=== PATIENT | female | born 1940 | race Caucasian/White ===

== ENCOUNTER 2017-04-28 14:43 | Emergency (ER) | payer BC, MEDICARE ==
--- NOTE | 2017-04-28 15:33 | EDM.PDOC ---
ED HPI GENERAL MEDICAL PROBLEM - General Chief Complaint: Abdominal Pain Stated Complaint: Abdominal pain Time Seen by Provider: 04/28/17 15:00 Source of Information: Reports: Patient, Half-Way Records, RN Notes Reviewed History Limitations: Reports: Other (severe dementia ) - History of Present Illness INITIAL COMMENTS - FREE TEXT/NARRATIVE: 76 year old female is brought to the ER today, accompanied by staff from [facility], for evlauation for abdominal pain and questionable syncope. The history is unclear as the patient is unable to provide history and there was a shift change. Current staff from [facility] is going off charting. Patient apparently became weak while on the toilet. The charting is not clear but there is a questionable syncopal episode while on the toilet. She has not had a BM x1 week. No nausea or vomiting. 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 The patient denies any symptoms at this time. She is anxious and says she would like to leave. When asked about her Honorio, she calms and is cooperative. Nurses aid that has accompanied the patient has no additional information. I was able to talk to another staff member from the home. Charting reports that patient "seemed to be passing out," was very weak, and having trouble standing. She's been c/o abdominal pain for the past few days. No vomiting or fever noted in the chart. She's been c/o rectal pain and was noted to have hemorrhoids on exam by nurse. She did have a small, loose bm today according to charting. - Related Data Allergies Allergy/AdvReac Type Severity Reaction Status Date / Time No Known Allergies Allergy Verified 10/14/13 10:48 CDT Home Meds: Home Meds Citalopram Hydrobromide [Celexa] 40 mg PO DAILY 04/28/17 [History] Cyanocobalamin/FA/Pyridoxine [Folbee] 1 each PO DAILY 04/28/17 [History] Donepezil [Aricept] 10 mg PO BEDTIME 04/28/17 [History] Ferrous Sulfate. 65 mg PO BID 04/28/17 [History] Hydrochlorothiazide 25 mg PO DAILY 04/28/17 [History] Hydrocortisone Acetate 25 mg RC TID #20 supp.rect 04/28/17 [Rx] Loperamide [Imodium] 2 mg PO DAILY PRN 04/28/17 [History] Memantine HCl [Namenda Xr] 28 mg PO DAILY 04/28/17 [History] Phenytoin Sodium Extended [Dilantin] 200 mg PO DAILY 04/28/17 [History] Phenytoin Sodium Extended [Dilantin] 300 mg PO BEDTIME 04/28/17 [History] Potassium Chloride 10 meq PO DAILY 04/28/17 [History] amLODIPine [Norvasc] 7.5 mg PO DAILY 04/28/17 [History] ED ROS GENERAL - Review of Systems Review Of Systems: See Below Constitutional: Reports: Weakness. Denies: Fever Respiratory: Reports: No Symptoms. Denies: Cough Cardiovascular: Reports: No Symptoms. Denies: Chest Pain GI/Abdominal: Reports: Abdominal Pain, Constipation, Diarrhea. Denies: Bloody Stool, Nausea, Vomiting : Reports: No Symptoms. Denies: Dysuria Neurological: Reports: Confusion ED EXAM, GI/ABD - Physical Exam Exam: See Below Exam Limited By: No Limitations General Appearance: Alert, WD/WN, No Apparent Distress, Anxious Respiratory/Chest: No Respiratory Distress, Lungs Clear, Normal Breath Sounds, No Accessory Muscle Use, Chest Non-Tender Cardiovascular: Normal Peripheral Pulses, Regular Rate, Rhythm, No Murmur, Other (2-3+ lower extremity edema, mark stockings in place ) GI/Abdominal Exam: Normal Bowel Sounds, Soft, Non-Tender, No Organomegaly, No Distention. No: Guarding, Rigid, Rebound Back Exam: Normal Inspection, Full Range of Motion. No: CVA Tenderness (L), CVA Tenderness (R) Neurological: Alert, Confused, Disoriented, Memory Loss Remote Events, Memory Loss Recent Events, Other (ambulates with steady gait while holding hand of staff members ) Skin Exam: Warm, Dry, Intact Course - Vital Signs Last Recorded V/S: Last Vital Signs Temp 98.2 F 04/28/17 14:57 Pulse 93 04/28/17 14:57 Resp BP 118/75 04/28/17 14:57 Pulse Ox 95 04/28/17 14:57 Orthostatic Blood Pressure [ 103/63 Standing] Orthostatic Blood Pressure [ 127/83 Supine] Orthostatic Blood Pressure [ 126/78 Sitting] - Orders/Labs/Meds Orders: Active Orders 24 hr Category Date Time Status Orthostatic Vital Signs [RC] ASDIRECTED Care 04/28/17 15:15 Active CULTURE URINE [RM] Stat Lab 04/28/17 10:25 Received Labs: Laboratory Tests 04/28/17 04/28/17 04/28/17 Range/Units 15:42 15:42 16:25 WBC 12.19 H (3.98-10.04) K/mm3 RBC 3.71 L (3.98-5.22) M/mm3 Hgb 11.8 (11.2-15.7) gm/L Hct 35.3 (34.1-44.9) % MCV 95.1 H (79.4-94.8) fl MCH 31.8 (25.6-32.2) pg MCHC 33.4 (32.2-35.5) g/dl RDW Std Deviation 43.2 (36.4-46.3) fL Plt Count 328 (182-369) K/mm3 MPV 9.3 L (9.4-12.3) fl Neut % (Auto) 74.1 H (34.0-71.1) % Lymph % (Auto) 16.4 L (19.3-51.7) % Hand % (Auto) 8.8 (4.7-12.5) % Eos % (Auto) 0.3 L (0.7-5.8) Baso % (Auto) 0.2 (0.1-1.2) % Neut # (Auto) 9.03 H (1.56-6.13) K/mm3 Lymph # (Auto) 2.00 (1.18-3.74) K/mm3 Hand # (Auto) 1.07 H (0.24-0.36) K/mm3 Eos # (Auto) 0.04 (0.04-0.36) K/mm3 Baso # (Auto) 0.02 (0.01-0.08) K/mm3 Sodium 138 (136-145) mEq/L Potassium 3.9 (3.5-5.1) mEq/L Chloride 99 (98-107) mEq/L Carbon Dioxide 26 (21-32) mEq/L Anion Gap 16.9 H (5-15) BUN 41 H (7-18) mg/dL Creatinine 2.2 H (0.55-1.02) mg/dL Est Cr Clr Drug Dosing 18.28 mL/min Estimated GFR (MDRD) 22 (>60) mL/min BUN/Creatinine Ratio 18.6 H (14-18) Glucose 148 H (83-115) mg/dL Calcium 9.4 (8.5-10.1) mg/dL Total Bilirubin 0.3 (0.2-1.0) mg/dL AST 31 (15-37) U/L ALT 32 (14-59) U/L Alkaline Phosphatase 161 H (46-116) U/L Total Protein 7.9 (6.4-8.2) g/dl Albumin 4.1 (3.4-5.0) g/dl Globulin 3.8 gm/dL Albumin/Globulin Ratio 1.1 (1-2) Urine Color Yellow (Yellow) Urine Appearance Slt cloudy H (Clear) Urine pH 5.5 (5.0-8.0) Ur Specific [place] 1.025 (1.005-1.030) Urine Protein 1+ H (Negative) Urine Glucose (UA) Negative (Negative) Urine Ketones Negative (Negative) Urine Occult Blood Negative (Negative) Urine Nitrite Negative (Negative) Urine Bilirubin Negative (Negative) Urine Urobilinogen 0.2 (0.2-1.0) Ur Leukocyte Esterase Trace H (Negative) Urine RBC 0-5 (0-5) /hpf Urine WBC 20-30 H (0-5) /hpf Ur Epithelial Cells 10-20 H (0-5) /hpf Urine Bacteria Few (FEW) /hpf Urine Mucus Not seen (FEW) /hpf - Re-Assessments/Exams Free Text/Narrative Re-Assessment/Exam: CBC reveals mildly elevated WBC. CMP reveals elevated kidney function likely due to volume depletion. No new labs available to compare to. Patient was mildly orthostatic but has been ambulating throughout the er with no symptoms of lightheadedness or dizziness. Patient reported pain while on the toilet. Difficult to determine if the pain was from voiding or from he hemorrhoids. Will start her on hemorrhoid suppositories at the [facility]. Urinalysis is mildly positive and appears to be contaminated. Will send for culture and avoid treating with antibiotics at this time due to her creatinine clearance. The patient has been drinking fluids in the er. She has refused an IV and will not tolerate an IV placement. She is quite anxious being outside of her [facility] environment. Staff has been able to redirect her but her anxiety is worsening as her ER stay lengthens. I feel she is safe to be discharged back to the home where she is most comfortable. Discussed plan of care with Dr. Lagunas who agrees and feels patient is safe to be discharged. Departure - Departure Time of Disposition: 16:50 Disposition: Home, Self-Care 01 Condition: Good Clinical Impression: Dehydration, Vaso vagal episode Hemorrhoid Qualifiers: Hemorrhoid type: unspecified Qualified Code(s): K64.9 - Unspecified hemorrhoids - Discharge Information Prescriptions: Hydrocortisone Acetate 25 mg RC TID #20 supp.rect Referrals: Viola Dobson MD [Primary Care Provider] - Forms: ED Department Discharge Additional Instructions: Dehydration: 1. push clear fluids 2. encourage her to drink at least 50 oz of water per day Hemorrhoids and pain with bowel movements 1. hydrocortisone suppositories up to 3 times a day as needed 2. miralax 1 capful daily to keep bowel soft 3. increase fiber and water intake Return to ER with new or worsening symptoms Follow-up with Dr. Dobson on Sunday or Sunday for recheck Urine sample was sent for culture. - My Orders Last 24 Hours: My Active Orders 04/28/17 10:25 CULTURE URINE [RM] Stat 04/28/17 15:15 Orthostatic Vital Signs [RC] ASDIRECTED - Assessment/Plan Last 24 Hours: My Active Orders 04/28/17 10:25 CULTURE URINE [RM] Stat 04/28/17 15:15 Orthostatic Vital Signs [RC] ASDIRECTED
== END 2017-04-28 17:14 | disposition home or self-care (01) ==
LOC: JD.ED 14:43
DX: E86.0 Dehydration (principal); R55 Syncope and collapse; K64.9 Unspecified hemorrhoids; Z79.899 Other long term (current) drug therapy
CPT/HCPCS: 36415; 80053; 81001; 85025; 87086; 99283; 99284

== ENCOUNTER 2017-05-18 09:28 | Emergency (ER) | payer BC, MEDICARE ==
--- NOTE | 2017-05-18 09:46 | EDM.PDOC ---
ED HPI GENERAL MEDICAL PROBLEM - General Chief Complaint: General Stated Complaint: [facility] Time Seen by Provider: 05/18/17 09:28 - History of Present Illness INITIAL COMMENTS - FREE TEXT/NARRATIVE: 76-year-old female brought in by EMS after having what sounds like a near syncopal episode at her Alzheimer[facility] unit. Staff was walking her and her knees buckled and gave out. They assisted her to the floor. She complains of right hip pain. She complains of discomfort along her right hip. The patient has advanced Alzheimer's will answer simple questions. According to staff at the facility she complained of right sided hip pain after the fall and also complained of some head pain. At this time she's not complaining of head pain but did initially. They voiced concerns about her possibly not drinking enough fluids. - Related Data Allergies Allergy/AdvReac Type Severity Reaction Status Date / Time No Known Allergies Allergy Verified 10/14/13 10:48 CDT Home Meds: Home Meds Citalopram Hydrobromide [Celexa] 40 mg PO DAILY 04/28/17 [History] Donepezil [Aricept] 10 mg PO BEDTIME 04/28/17 [History] Ferrous Sulfate. 65 mg PO BID 04/28/17 [History] Hydrochlorothiazide 25 mg PO DAILY 04/28/17 [History] Hydrocortisone Acetate 25 mg RC TID #20 supp.rect 04/28/17 [Rx] Memantine HCl [Namenda Xr] 28 mg PO DAILY 04/28/17 [History] Phenytoin Sodium Extended [Dilantin] 200 mg PO DAILY 04/28/17 [History] Phenytoin Sodium Extended [Dilantin] 300 mg PO BEDTIME 04/28/17 [History] Potassium Chloride 10 meq PO DAILY 04/28/17 [History] amLODIPine [Norvasc] 7.5 mg PO DAILY 04/28/17 [History] Folic Acid/Vit Bcomp,C/Cu/Znox [Folbee Plus Cz] 1 tab PO DAILY 05/18/17 [History ] Polyethylene Glycol 3350 [MiraLAX] 17 gm PO DAILY 05/18/17 [History] risperiDONE 0.25 mg PO BID 05/18/17 [History] traZODone 25 mg PO BEDTIME 05/18/17 [History] Past Medical History - Past Health History Medical/Surgical History: Denies Medical/Surgical History Social & Family History - Family History Family Medical History: Noncontributory - Tobacco Use Smoking Status *Q: Unknown Ever Smoked Second Hand Smoke Exposure: No - Caffeine Use Caffeine Use: Reports: None - Recreational Drug Use Recreational Drug Use: No Review of Systems - Review of Systems Review Of Systems: Unable To Obtain ED EXAM, GENERAL - Physical Exam Exam: See Below Exam Limited By: Other (Dementia/Alzheimer's) General Appearance: Alert, No Apparent Distress Eye Exam: Bilateral Eye: Normal Inspection Ears: Normal External Exam, Normal Canal, Hearing Grossly Normal, Normal TMs Nose: Normal Inspection, Normal Mucosa Throat/Mouth: Normal Lips, Normal Oropharynx, Normal Voice, No Airway Compromise , Other (Semi-dry mucosa dentures upper) Head: Atraumatic, Normocephalic, Other (Nontender with palpation) Neck: Normal Inspection, Supple, Non-Tender, Full Range of Motion, Other (No palpable tenderness no bony discomfort). No: Lymphadenopathy (L), Lymphadenopathy (R), Tender Midline Respiratory/Chest: No Respiratory Distress, Lungs Clear, Normal Breath Sounds Cardiovascular: Regular Rate, Rhythm, No Edema, No Murmur GI/Abdominal: Normal Bowel Sounds, Soft, Non-Tender Back Exam: Normal Inspection, Other (After initial survey the patient was gently rolled over onto her side for inspection of the spine done no bony discomfort noted over the sacrum over the lumbar thoracic or cervical spine palpation of the upper back revealed no rib discomfort) Extremities: Normal Inspection, Other (She has 2+ pitting edema support hose in place) Neurological: Confused Course - Vital Signs Last Recorded V/S: Last Vital Signs Temp 36.2 C 05/18/17 09:46 Pulse 90 05/18/17 09:46 Resp 18 05/18/17 09:46 BP 128/76 05/18/17 09:46 Pulse Ox 97 05/18/17 09:46 - Orders/Labs/Meds Orders: Active Orders 24 hr Category Date Time Status Lactated Ringers [Ringers, Lactated] 1,000 ml Med 05/18/17 10:15 Active IV ASDIRECTED Medication Orders Lactated Ringer's (Ringers, Lactated) 1,000 mls @ 150 mls/hr IV ASDIRECTED ARTHUR Last Admin: 05/18/17 10:20 Dose: 150 mls/hr Labs: Laboratory Tests 05/18/17 05/18/17 05/18/17 Range/Units 10:34 10:34 11:05 WBC 8.35 (3.98-10.04) K/mm3 RBC 3.71 L (3.98-5.22) M/mm3 Hgb 11.8 (11.2-15.7) gm/L Hct 35.6 (34.1-44.9) % MCV 96.0 H (79.4-94.8) fl MCH 31.8 (25.6-32.2) pg MCHC 33.1 (32.2-35.5) g/dl RDW Std Deviation 44.3 (36.4-46.3) fL Plt Count 205 (182-369) K/mm3 MPV 8.9 L (9.4-12.3) fl Neutrophils % (Manual) 81 H (40-60) % Band Neutrophils % 0 (0-10) % Lymphocytes % (Manual) 11 L (20-40) % Atypical Lymphs % 0 % Monocytes % (Manual) 7 (2-10) % Eosinophils % (Manual) 1 (0.7-5.8) % Basophils % (Manual) 0 L (0.1-1.2) Platelet Estimate Adequate RBC Morph Comment Normal Sodium 137 (136-145) mEq/L Potassium 4.0 (3.5-5.1) mEq/L Chloride 102 (98-107) mEq/L Carbon Dioxide 27 (21-32) mEq/L Anion Gap 12.0 (5-15) BUN 33 H (7-18) mg/dL Creatinine 1.8 H (0.55-1.02) mg/dL Est Cr Clr Drug Dosing 23.32 mL/min Estimated GFR (MDRD) 27 (>60) mL/min BUN/Creatinine Ratio 18.3 H (14-18) Glucose 133 H (83-115) mg/dL Calcium 9.1 (8.5-10.1) mg/dL Total Bilirubin 0.5 (0.2-1.0) mg/dL AST 45 H (15-37) U/L ALT 42 (14-59) U/L Alkaline Phosphatase 150 H (46-116) U/L Total Protein 7.1 (6.4-8.2) g/dl Albumin 3.7 (3.4-5.0) g/dl Globulin 3.4 gm/dL Albumin/Globulin Ratio 1.1 (1-2) Urine Color Yellow (Yellow) Urine Appearance Clear (Clear) Urine pH 6.0 (5.0-8.0) Ur Specific [place] 1.025 (1.005-1.030) Urine Protein 2+ H (Negative) Urine Glucose (UA) Negative (Negative) Urine Ketones Negative (Negative) Urine Occult Blood Trace-lysed H (Negative) Urine Nitrite Negative (Negative) Urine Bilirubin Negative (Negative) Urine Urobilinogen 0.2 (0.2-1.0) Ur Leukocyte Esterase Negative (Negative) Urine RBC 5-10 H (0-5) /hpf Urine WBC 0-5 (0-5) /hpf Ur Epithelial Cells 0-5 (0-5) /hpf Amorphous Sediment Moderate H (NOT SEEN) /hpf Urine Bacteria Few (FEW) /hpf Hyaline Casts 0-5 (0-5) /lpf Urine Mucus Not seen (FEW) /hpf Meds: Medications Generic Name Dose Route Start Last Admin Trade Name Garth PRN Reason Stop Dose Admin Lactated Ringer's 1,000 mls @ 150 mls/hr 05/18/17 10:15 05/18/17 10:20 Ringers, Lactated IV 150 mls/hr ASDIRECTED ARTHUR Administration - Re-Assessments/Exams Free Text/Narrative Re-Assessment/Exam: 05/18/17 13:30 She has some renal insufficiency this is noted less so than prior. She received 500 mL of fluid and is ambulatory without difficulty at this time. Evaluation is negative we will discharge back to the home she lives in Departure - Departure Time of Disposition: 13:31 Disposition: DC/Tfer to Long-Term Care 63 Clinical Impression: Contusion of right hip - Discharge Information Forms: ED Department Discharge Additional Instructions: Return to the emergency room with any questions problems worsening symptoms. Push fluids. Activities as tolerated, however be aware of decreased exercise ability. - My Orders Last 24 Hours: My Active Orders 05/18/17 10:15 Lactated Ringers [Ringers, Lactated] 1,000 ml IV ASDIRECTED - Assessment/Plan Last 24 Hours: My Active Orders 05/18/17 10:15 Lactated Ringers [Ringers, Lactated] 1,000 ml IV ASDIRECTED
[2017-05-18] MEDS ORDERED: Lactated Ringers 1,000 ML IV SCH (10:15)
--- NOTE | 2017-05-18 10:19 | CT ---
Head CT Technique: Multiple axial sections through the brain were obtained. Intravenous contrast was not utilized. Comparison: No previous intracranial imaging. Findings: Ventricles along with basal cisterns and sulci over convexities are moderately prominent. Diffuse diminished density is noted within the periventricular and subcortical white matter which is compatible with small vessel ischemic demyelination change. 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 No other abnormal parenchymal densities are seen. No evidence of intracranial hemorrhage. No midline shift or mass effect is seen. Bone window settings were reviewed which shows no acute calvarial abnormality. Visualized sinuses shows incidental mucosal thickening or retention cyst within each maxillary sinus. No acute calvarial abnormality is seen. Impression: 1. Senescent change as described above. 2. Incidental sinus findings. 3. No acute abnormality is identified on noncontrast head CT study. Diagnostic code #2
--- NOTE | 2017-05-18 10:32 | CR ---
Pelvis and right hip: AP view of the pelvis was obtained as well as AP and frog-leg lateral views of the right hip. Moderate joint space narrowing is seen within both hips. Degenerative change is partially visualized within the lower lumbar spine. Bony structures are osteopenic. Joint space narrowing is seen within both sacroiliac joints. No acute fracture or other bony abnormality is appreciated. Impression: 1. Osteopenia and degenerative change as described above. 2. Nothing acute is appreciated on AP pelvis or on two-view right hip exam. Diagnostic code #2
--- NOTE | 2017-05-18 12:45 | CR ---
Chest: Portable view of the chest was obtained. Comparison: No previous study. Severe degenerative change within the right shoulder is seen with probable chronic rotator cuff tear. Heart size and mediastinum are normal. Lungs are clear. Osteopenia is present. Impression: 1. Incidental findings. Nothing acute is identified on portable chest x-ray. Diagnostic code #2
== END 2017-05-18 13:43 ==
LOC: JD.ED 09:28
DX: S70.01XA Contusion of right hip, initial encounter (principal); G30.9 Alzheimer's disease, unspecified; F02.80 Dementia in other diseases classified elsewhere, unspecified severity, without behavioral disturbance, psychotic disturbance, mood disturbance, and anxiety; Z79.899 Other long term (current) drug therapy; W19.XXXA Unspecified fall, initial encounter
CPT/HCPCS: 36415; 70450; 71010; 73502; 80053; 80185; 81001; 85025; 96360; 96361; 99285; J7120; P9612; 99284